=== PATIENT | female | born 1940 | race Two or more races ===

== ENCOUNTER 2019-03-21 08:00 | Day surgery (SDC) | payer MEDICARE, OTHER ==
[~2019-03-21] VITALS: Ht 160 cm; Wt 56.7 kg
[2019-03-21] VITALS (9 sets, daily range): BP systolic 97–136; BP diastolic 50–89
[~2019-03-21 08:00] MED LIST: LR 1000ml 1,000 ML IV SCH
[2019-03-21] MEDS ORDERED: fentaNYL 100 mcg/2 mL IV ONE (08:01)
--- NOTE | 2019-03-21 08:42 | Short Stay Surgery H&P ---
History of Present Illness History of Present Illness Chief Complaint Abdominal pains/GERDs, history of colon polyp HPI Zenia Kirby is a 78 year old female who was admitted on for GERDS/abdominal pains and history of colon polyp Patient History Allergies: Coded Allergies: No Known Allergies (Unverified , 03/20/19) PAST MEDICAL HISTORY: (1) Hypothyroid Review of Systems Cardiovascular: Reports: no symptoms Respiratory: Reports: no symptoms Skeletal: Reports: no symptoms Genitourinary: Reports: no symptoms Neurologic: Reports: no symptoms Endocrine: Reports: no symptoms Hematologic: Reports: no symptoms Physical Exam Skin: normal HENT: normal Heart: normal Lungs: normal Abdomen: normal Extremities: normal Genitourinary: normal Plan Plan of Care Upper and lower GI endoscopy with possible biopsy Preop Interventions None Summary of Findings See the reports Attestation Are the patient's medical conditions optimized for surgery? Attestation Response: yes Travis Santos MD Mar 21, 2019 08:42
--- NOTE | 2019-03-21 08:43 | Pre-Procedure Note/Attestation ---
Pre-Procedure Note/Attestation Complete Prior to Procedure Planned Procedure: left Procedure Narrative: Examination of the upper and lower Gi tract via endoscopy Indications for Procedure Pre-Operative Diagnosis: R/O Gastritis esophagitis ulcers/colon polyps Attestation I attest that I discussed the nature of the procedure; its benefits; risks and complications; and alternatives (and the risks and benefits of such alternatives ), prior to the procedure, with the patient (or the patient's legal automotive leasing sales representative). I attest that, if there was a reasonable possibility of needing a blood transfusion, the patient (or the patient's legal automotive leasing sales representative) was given the [place] [employer] standardized written summary, pursuant to the [place] Blood Safety Act ([place] Health and Safety Code # 1645, as amended). I attest that I re-evaluated the patient just prior to the surgery and that there has been no change in the patient's H&P, except as documented below: Travis Santos MD Mar 21, 2019 08:43
[2019-03-21] MEDS ORDERED: ZANTAC150 MG ORAL (08:47)
[2019-03-21] MEDS ORDERED: PRILOSEC OTC20 MG ORAL (08:47)
[2019-03-21] MEDS ORDERED: LR 1000ml ONE (09:00)
[2019-03-21] MEDS ORDERED: Propofol 200mg/20ml IV ONE (09:00)
[2019-03-21] MEDS ORDERED: LR 1000ml 1,000 ML IVLG SCH (09:14)
--- NOTE | 2019-03-21 09:14 | Anethesia Preoperative Eval ---
Anesthesia Pre-op PMH/ROS General Date of Evaluation: Mar 21, 2019 Time of Evaluation: 08:41 Anesthesiologist: Carol ASA Score: ASA 2 Mallampati Score Class I : Soft palate, uvula, fauces, pillars visible Class II: Soft palate, uvula, fauces visible Class III: Soft palate, base of uvula visible Class IV: Only hard plate visible Mallampati Classification: Class II Surgeon: Zunilda Diagnosis: Abdominal pain Surgical Procedure: EGD Colonoscopy Anesthesia History: none Family History: no anesthesia problems Allergies: Coded Allergies: No Known Allergies (Unverified , 03/21/19) Medications: see eMAR Patient NPO?: Yes Past Medical History Cardiovascular: Reports: HTN - borderline; Denies: CAD, [place], valve dz, arrhythmia, other Pulmonary: Denies: asthma, COPD, NELL, other Gastrointestinal/Genitourinary: Reports: GERD; Denies: CRI, ESRD, other Neurologic/Psychiatric: Denies: dementia, CVA, depression/anxiety, TIA, other Endocrine: Denies: DM, hypothyroidism, steroids, other HEENT: Denies: cataract (L), cataract (R), glaucoma, SENECA-CAYUGA (L), SENECA-CAYUGA (R), other Hematology/Immune: Denies: anemia, DVT, bleeding disorder, other Musculoskeletal/Integumentary: Reports: OA; Denies: RA, DJD, DDD, edema, other PMH Narrative: as above PSxH Narrative: None Anesthesia Pre-op Phys. Exam Physician Exam Last Vital Signs Date Time Temp Pulse Resp B/P (MAP) Pulse Ox O2 Delivery O2 Flow Rate FiO2 03/21/19 08:53 Room Air 03/21/19 08:47 97.2 89 18 121/89 99 Constitutional: NAD Neurologic: CN 2-12 intact Cardiovascular: RRR, no M/R/G Respiratory: CTA Gastrointestinal: S/NT/ND Airway Exam Mallampati Score: Class II MO: limited Neck: stiff ROM: limited Teeth: missing Dentures: no upper, no lower Anesthesia Pre-op A/P Risk Assessment & Plan Assessment: ASA 2 Plan: Xavier Keys MD Mar 21, 2019 09:14
[2019-03-21] MEDS ORDERED: fentaNYL 100 mcg/2 mL IV PRN (09:15)
--- NOTE | 2019-03-21 09:21 | Endoscopy Procedure Note ---
Endoscopy Procedure Note General Indication for Procedure: Abdominal pains/GERDs anad history of colon polyps Procedures Performed: EGD - Evidence of large Hiatal Hernia and mild erosion at GEJ, mild gastritis with bile in the stomach. Biopsies obtained from gastric body and GE junction., colonoscopy - Minimal internal hemorrohids; otherwise normal total colonoscopy. No polyps found. Specimen: yes Pt Tolerated Procedure Well: Yes Estimated Blood Loss: none Anesthesia Anesthesiologist: Dr. Medina Anesthesia: moderate sedation Inserted Devices Implant(s) used?: No Quality Quality of Bowel Preparation: Excellent Did scope reach the cecum?: Yes Was there any complications?: No GI Core Measures 50 yrs or older w/o bx or poly: Yes 10yrs. F/U recommended: Yes 18 years or older w/prev. colo: Yes <3yrs. since last colonoscopy: No Med reason:<3 yrs.: System Reason:<3 yrs.: Last colonoscopy >= to 3yrs: Yes Travis Santos MD Mar 21, 2019 09:21
--- NOTE | 2019-03-21 09:22 | Discharge Instructions ---
Discharge Instructions Discharge Instructions Follow up with: See the doctor in office after 2 weeks For Congestive Heart Failure Reminder Report to your physician any weight gain of 5 pounds or more in one week. Travis Santos MD Mar 21, 2019 09:22
--- NOTE | 2019-03-21 09:30 | Immediate Post-Op Evaluation ---
Immediate Post-Op Evalulation Immediate Post-Op Evalulation Procedure: EGD Colonoscopy Date of Evaluation: Mar 21, 2019 Time of Evaluation: 09:29 IV Fluids: 500 Blood Products: none Estimated Blood Loss: min Urinary Output: none Blood Pressure Systolic: 98 Blood Pressure Diastolic: 54 Pulse Rate: 87 Respiratory Rate: 20 O2 Sat by Pulse Oximetry: 98 Temperature (Fahrenheit): 97.8 Nausea: No Vomiting: No Patient Status: reacts, patent, none Hydration Status: adequate Xavier Medina MD Mar 21, 2019 09:30
--- NOTE | 2019-03-21 10:17 | 48 Hour Post Anesthesia Eval ---
Post Anesthesia Evaluation Procedure: EGD Colonoscopy Date of Evaluation: Mar 21, 2019 Time of Evaluation: 10:16 Blood Pressure Systolic: 116 0: 58 Pulse Rate: 72 Respiratory Rate: 20 Temperature (Fahrenheit): 97.6 O2 Sat by Pulse Oximetry: 98 Airway: patent Nausea: No Vomiting: No Pain Intensity: 1 Hydration Status: adequate Cardiopulmonary Status: stable Mental Status/LOC: patient returned to baseline Follow-up Care/Observations: n/a Post-Anesthesia Complications: none Follow-up care needed: ready to discharge Xavier Medina MD Mar 21, 2019 10:17
--- NOTE | 2019-03-21 11:00 | Operative Note - Dictated ---
DATE OF OPERATION: 03/21/2019 SURGEON: Travis Santos M.D. PROCEDURE: Esophagogastroduodenoscopy with biopsy. PREOPERATIVE DIAGNOSIS: Abdominal pain, history of chronic gastroesophageal reflux, rule out peptic ulcer disease, esophagitis. POSTOPERATIVE DIAGNOSES: 1. Large hiatal hernia with minimal erosions at the gastroesophageal junction. Biopsy taken from gastroesophageal junction. 2. Mild gastritis with evidence of bile in the stomach and gastric biopsy was also done from gastric body. MEDICATION USED: Per Dr. Medina, anesthesiologist. INSTRUMENT: GIF Olympus upper GI video endoscope. DESCRIPTION OF PROCEDURE: The patient after arriving in the endoscopy unit, was told about risks and benefits of the procedure, which she accepted and signed informed consent. She was then put on the left lateral decubitus position. After adequate IV sedation, the scope was gently passed through the cricopharyngeal area, was lodged into the upper esophagus and gradually advanced towards gastroesophageal junction. The entire length of the esophagus looked normal and there was no any evidence of esophagitis, stricture, etc. However, the GE junction was 30 cm from incisors revealing short esophagus and there was evidence of large hiatal hernia. There was minimal erosions at the GE junction into the esophagus, but very superficial in nature. There was no jules ulcerations or bleeding. At this point, one biopsy from the GE junction was obtained and subsequently scope was advanced into the stomach revealing moderate amount of bile collected in the stomach consistent with duodenogastric bile reflux. Underlying mucosa showed evidence of mild inflammatory process, mostly in the lower part of the stomach in the antrum. There were no ulcers, tumors, polyps, etc. No bleeding sites noted. One random biopsy from this antral area was obtained and subsequently scope was passed through the pylorus. First and second portion of duodenum were found to be completely normal. At this time, the scope was pulled out and procedure was terminated. The patient tolerated the procedure well. Said Wilner Santos DR: KISHOR JOB#: [id number] CC:
--- NOTE | 2019-03-21 11:00 | Operative Note - Dictated ---
DATE OF OPERATION: 03/21/2019 SURGEON: Travis Santos M.D. PROCEDURE: Total colonoscopy. PREOPERATIVE DIAGNOSIS: History of colon polyp, abdominal pain. POSTOPERATIVE DIAGNOSIS: Evidence of minimal internal hemorrhoid, otherwise completely normal total colonoscopy up to the base of the cecum as examined. MEDICATION USED: Per Dr. Medina, anesthesiologist. INSTRUMENT: GIF Olympus video colonoscope. DESCRIPTION OF PROCEDURE: The patient after arriving in the endoscopy unit, was told about risks and benefits of the procedure, which she accepted and signed informed consent. She was then put on the left lateral decubitus position. At this time, the scope was gradually introduced into the anorectal area, which revealed evidence of very minimal internal hemorrhoids and nonfriable and nonsignificant. The rest of the rectum looked completely normal. At this time, the scope was passed through rather redundant left colon, which was completely free of any abnormalities. No diverticula, polyps, tumors, strictures, colitis, etc. was found. Gradually with maneuvers the scope reached to the splenic flexure. From there, it was guided into the transverse colon, hepatic flexure, and finally reached to the base of the cecum. All these areas revealed to be completely normal and there was no any abnormality found. Upon reaching to the base of the cecum, the scope gradually was pulled out and there was no other abnormalities found. The patient tolerated the procedure well and left the endoscopy room in a good condition. Travis Santos M.D. DR: KISHOR JOB#: [id number] CC:
== END 2019-03-21 10:40 | disposition home or self-care (01) ==
LOC: EDBD → EDSEX 08:00 → MERGE 08:00 → GAS 08:00
DX: R10.9 Unspecified abdominal pain (principal); Z86.010 Personal history of colon polyps; K64.8 Other hemorrhoids; K44.9 Diaphragmatic hernia without obstruction or gangrene; K21.9 Gastro-esophageal reflux disease without esophagitis; K29.50 Unspecified chronic gastritis without bleeding; E03.9 Hypothyroidism, unspecified; I10 Essential (primary) hypertension; M19.90 Unspecified osteoarthritis, unspecified site
CPT/HCPCS: 43239; 45378; J2704; J3010; 94003; 94150